=== PATIENT | male | born 1975 | race Caucasian/White ===

== ENCOUNTER 2019-06-17 09:26 | Emergency (ER) | payer BC ==
[2019-06-17 10:00] VITALS: BP 145/99
--- NOTE | 2019-06-17 10:21 | ED ---
Throat Pain/Nasal Congestion - HPI Summary HPI Summary: 44 year old female presents with worsening sinus congestion for the past 4 days. He started he developing a fever last night. He states he has a lot of sinus pressure left side of his face. He is also been having teeth pain due to the sinus congestion. He feels that he has a history asthma states that feels like is going to his chest as he is getting some tightness there. Has an occasional cough. No shortness of breath. He states he took some albuterol and some cold and sinuses this morning. He has a history nosebleeds. - History of Current Complaint Chief Complaint: UCGeneralIllness Time Seen by Provider: 06/17/19 10:15 - Allergies/Home Medications Allergies/Adverse Reactions: Allergies Allergy/AdvReac Type Severity Reaction Status Date / Time iodine Allergy Anaphylatic Verified 06/17/19 09:53 Shock shellfish derived Allergy Anaphylatic Verified 06/17/19 09:53 Shock Home Medications: Home Medications Albuterol HFA INHALER* [Ventolin HFA Inhaler*] 1 puff INH Q4H PRN 06/17/19 [ History Confirmed 06/17/19] Omeprazole 20 mg PO DAILY 06/17/19 [History Confirmed 06/17/19] Phenylephrine/Dm/Acetaminop/GG [Multi-Symptom Cold Caplet] 1 each PO ONCE [History Confirmed 06/17/19] PMH/Surg Hx/FS Hx/Imm Hx Endocrine/Hematology History: Denies: Hx Diabetes, Hx Thyroid Disease Cardiovascular History: Denies: Hx Hypertension Respiratory History: Reports: Hx Asthma Denies: Hx Chronic Obstructive Pulmonary Disease (COPD) GI History: Denies: Hx Ulcer - Surgical History Surgery Procedure, Year, and Place: right foot surgey as a kid, 2011, labrum and bicep surgery left shoulder Infectious Disease History: No Infectious Disease History: Denies: Hx Clostridium Difficile, Hx Hepatitis, Hx Human Immunodeficiency Virus (HIV), Hx of Known/Suspected MRSA, Hx Shingles, Hx Tuberculosis, Hx Known/ Suspected VRE, Hx Known/Suspected VRSA, History Other Infectious Disease, Traveled Outside the [place] in Last 30 Days - Family History Known Family History: Negative: Cardiac Disease, Hypertension, Diabetes - Social History Alcohol Use: Occasionally Substance Use Type: Reports: None Smoking Status (MU): Never Smoked Tobacco Have You Smoked in the Last Year: No Review of Systems Positive: Fever, Chills Positive: Ear Ache, Nasal Discharge Negative: Chest Pain Positive: Cough All Other Systems Reviewed And Are Negative: Yes Physical Exam Triage Information Reviewed: Yes Vital Signs On Initial Exam: Initial Vitals Temp Pulse Resp BP Pulse Ox 97.3 F 66 18 145/99 97 06/17/19 09:55 06/17/19 09:55 06/17/19 09:55 06/17/19 09:55 06/17/19 09:55 Vital Signs Reviewed: Yes Appearance: Positive: Well-Appearing Skin: Positive: Warm, Dry Head/Face: Positive: Normal Head/Face Inspection Eyes: Positive: Normal, EOMI, DEAN, Conjunctiva Clear ENT: Positive: Pharynx normal, TMs normal, Sinus tenderness Respiratory/Lung Sounds: Positive: Clear to Auscultation, Breath Sounds Present Cardiovascular: Positive: Normal, RRR Musculoskeletal: Positive: Normal Neurological: Positive: Normal Psychiatric: Positive: Normal Diagnostics - Vital Signs Vital Signs Temp Pulse Resp BP Pulse Ox 06/17/19 09:55 97.3 F 66 18 145/99 97 - Laboratory Lab Statement: Any lab studies that have been ordered have been reviewed, and results considered in the medical decision making process. EENT Course/Dx - Course Course Of Treatment: 44 year old female presents with worsening sinus congestion for the past 4 days. He started he developing a fever last night. He states he has a lot of sinus pressure left side of his face. He is also been having teeth pain due to the sinus congestion. He feels that he has a history asthma states that feels like is going to his chest as he is getting some tightness there. Has an occasional cough. No shortness of breath. He states he took some albuterol and some cold and sinuses this morning. He has a history nosebleeds. On exam sinus congestion noted. Sinus tenderness present. Lungs are clear to auscultation. Discuss options that with worsening sinus congestion and fever will treat with Augmentin. Discussed patient is concerned that asthma will flare so will add on perdnisone as patient can not take flonase with history of nose bleed. told to follow up with primary about blood pressure as is elevated. patient understand and agrees with plan. - Differential Diagnoses Differential Diagnoses: Otitis Media, Sinusitis, URI/Bronchitis - Diagnoses Provider Diagnoses: Sinusitis, Asthma, Elevated blood pressure reading Discharge ED - Sign-Out/Discharge Documenting (check all that apply): Patient Departure All imaging exams completed and their final reports reviewed: No Studies - Discharge Plan Condition: Good Disposition: HOME Prescriptions: Amoxicillin/Clavulanate TAB* [Augmentin TAB 875*] 875 mg PO BID #20 tab predniSONE TAB* [Deltasone TAB*] 50 mg PO DAILY #5 tab Patient Education Materials: Sinusitis (ED) Referrals: Bob Tamez MD [Primary Care Provider] - Additional Instructions: Take antibiotic twice a day for 10 days take prednisone once a day for 5 days Use saline spray in nose as much as needed Use OTC decongestions Follow up with primary care physician within 5 days Return to with any new or worsening symptoms - Billing Disposition and Condition Condition: GOOD Disposition: Home
== END 2019-06-17 10:28 | disposition home or self-care (01) ==
LOC: UCEAST 09:26
DX: J45.909 Unspecified asthma, uncomplicated (principal); J32.9 Chronic sinusitis, unspecified; R03.0 Elevated blood-pressure reading, without diagnosis of hypertension; K08.89 Other specified disorders of teeth and supporting structures; Z91.013 Allergy to seafood; Z91.09 Other allergy status, other than to drugs and biological substances; Z79.899 Other long term (current) drug therapy
CPT/HCPCS: 99212; G0463